=== PATIENT | male | born 1995 | race Caucasian/White ===

== ENCOUNTER 2021-08-17 14:00 | Emergency (ER) | payer OTHER ==
[2021-08-17 14:09] VITALS: BP 185/95; PULSE 70; RESP 20; TEMP 97.6
[2021-08-17] MEDS ORDERED: KETOROLAC 15 MG/ML 1 ML VIAL IVP STA (14:22)
[2021-08-17] MEDS ORDERED: SODIUM CHLORIDE 0.9% 1,000 ML IV STA (14:22)
--- NOTE | 2021-08-17 14:27 | ED ---
General Adult HPI - General Chief complaint: Back Pain/Injury Stated complaint: Abd pain Time Seen by Provider: 08/17/21 14:10 Source: patient, RN notes reviewed, old records reviewed Mode of arrival: wheelchair Limitations: no limitations - History of Present Illness Initial comments: This is a 25-year-old male who presents emergency department stating that back in April he was told he had a 6 mm kidney stone and it is never past according to him. Patient states he has episodes every so often that causes some left- sided flank pain back pain and sometimes radiates into his testicle. Patient states one of those episodes started this morning and it radiated into his testicle and into his CVA region of his back. Patient denies any blood in his urine. Patient denies any nausea vomiting. Patient states he has not taken anything for the pain. Patient denies any fever chills or cough. Patient denies any other symptoms. Patient states the symptoms he's having today's had multiple times since April patient states he had a CAT scan done in April at [facility] - Related Data Previous Rx's Medication Instructions Recorded Ketorolac [Toradol] 10 mg PO Q6HR #15 tab 08/17/21 Tamsulosin [Flomax] 0.4 mg PO DAILY #10 cap 08/17/21 Allergies Allergy/AdvReac Type Severity Reaction Status Date / Time No Known Allergies Allergy Verified 08/17/21 14:09 Review of Systems ROS Statement: Those systems with pertinent positive or pertinent negative responses have been documented in the HPI. ROS Other: All systems not noted in ROS Statement are negative. Past Medical History Past Medical History: No Reported History Past Surgical History: No Surgical Hx Reported Past Psychological History: No Psychological Hx Reported Smoking Status: Vaper Past Alcohol Use History: None Reported Past Drug Use History: Marijuana General Exam - General Exam Comments Initial Comments: GENERAL: Patient is well-developed and well-nourished. Patient is nontoxic and well- hydrated and is in mild distress. ENT: Neck is soft and supple. No significant lymphadenopathy is noted. Oropharynx is clear. Moist mucous membranes. Neck has full range of motion without eliciting any pain. EYES The sclera were anicteric and conjunctiva were pink and moist. Extraocular movements were intact and pupils were equal round and reactive to light. PULMONARY: Unlabored respirations. Good breath sounds bilaterally. No audible rales rhonchi or wheezing was noted. CARDIOVASCULAR: There is a regular rate and rhythm without any murmurs gallops or rubs. ABDOMEN: Soft and nontender with normal bowel sounds. Patient has some mild CVA tenderness GENITALIA: Patient had no redness swelling or tenderness of the scrotum or testicles. SKIN: Skin is clear with no lesions or rashes and otherwise unremarkable. NEUROLOGIC: Patient is alert and oriented x3. Cranial nerves II through XII are grossly intact. Motor and sensory are also intact. Normal speech, volume and content. Symmetrical smile. MUSCULOSKELETAL: Normal extremities with adequate strength and full range of motion. No lower extremity swelling or edema. No calf tenderness. LYMPHATICS: No significant lymphadenopathy is noted PSYCHIATRIC: Normal psychiatric evaluation. Limitations: no limitations Course Vital Signs 08/17/21 14:06 Temperature 97.6 F Pulse Rate 70 Respiratory 20 Rate Blood Pressure 185/95 O2 Sat by Pulse 100 Oximetry Medical Decision Making - Medical Decision Making Patient received Toradol and got moderate relief but still is having some pain so he received another 0.5 of Dilaudid. Patient's CAT scan showed a 7 mm stone at the UVJ junction. Patient will be sent home with Flomax Toradol Tylenol with codeine and will be advised to follow-up with urology - Lab Data Result diagrams: 08/17/21 14:31 08/17/21 14:31 Lab Results 08/17/21 08/17/21 08/17/21 Range/Units 14:31 14:31 14:31 WBC 13.8 H (3.8-10.6) k/uL RBC 4.72 (4.30-5.90) m/uL Hgb 15.1 (13.0-17.5) gm/dL Hct 43.9 (39.0-53.0) % MCV 93.2 (80.0-100.0) fL MCH 32.0 (25.0-35.0) pg MCHC 34.3 (31.0-37.0) g/dL RDW 12.4 (11.5-15.5) % Plt Count 314 (150-450) k/uL MPV 6.7 Neutrophils % 87 % Lymphocytes % 8 % Monocytes % 4 % Eosinophils % 1 % Basophils % 0 % Neutrophils # 12.0 H (1.3-7.7) k/uL Lymphocytes # 1.1 (1.0-4.8) k/uL Monocytes # 0.5 (0-1.0) k/uL Eosinophils # 0.1 (0-0.7) k/uL Basophils # 0.1 (0-0.2) k/uL Sodium 140 (137-145) mmol/L Potassium 4.1 (3.5-5.1) mmol/L Chloride 106 (98-107) mmol/L Carbon Dioxide 26 (22-30) mmol/L Anion Gap 8 mmol/L BUN 10 (9-20) mg/dL Creatinine 0.90 (0.66-1.25) mg/dL Est GFR (CKD-EPI)AfAm >90 (>60 ml/min/1.73 sqM) Est GFR (CKD-EPI)NonAf >90 (>60 ml/min/1.73 sqM) Glucose 111 H (74-99) mg/dL Calcium 9.3 (8.4-10.2) mg/dL Total Bilirubin 0.7 (0.2-1.3) mg/dL AST 27 (17-59) U/L ALT 15 (4-49) U/L Alkaline Phosphatase 64 (38-126) U/L Total Protein 7.4 (6.3-8.2) g/dL Albumin 4.6 (3.5-5.0) g/dL Amylase 59 (30-110) U/L Lipase 45 (23-300) U/L Urine Color Light Red Urine Appearance Cloudy (Clear) Urine pH 6.0 (5.0-8.0) Ur Specific Hamilton 1.028 (1.001-1.035) Urine Protein 1+ H (Negative) Urine Glucose (UA) Negative (Negative) Urine Ketones Trace H (Negative) Urine Blood Large H (Negative) Urine Nitrite Negative (Negative) Urine Bilirubin Negative (Negative) Urine Urobilinogen <2.0 (<2.0) mg/dL Ur Leukocyte Esterase Negative (Negative) Urine RBC >182 H (0-5) /hpf Urine Mucus Rare H (None) /hpf Urine Yeast (Budding) Occasional H (None) /hpf Disposition Clinical Impression: Kidney stone on right side Disposition: HOME SELF-CARE Instructions (If sedation given, give patient instructions): Kidney Stones (ED), How to Strain Your Urine (ED) Prescriptions: Tamsulosin [Flomax] 0.4 mg PO DAILY #10 cap Ketorolac [Toradol] 10 mg PO Q6HR #15 tab Is patient prescribed a controlled substance at d/c from ED?: No Referrals: Flo Carroll MD [STAFF PHYSICIAN] - 1-2 days Time of Disposition: 15:39
[2021-08-17 14:52] LABS: Appearance,Urine Cloudy (Clear); Bilirubin,Urine Negative (Negative); Blood,Urine Large (Negative); Budding Yeast,Urine Occasional /hpf; Color,Urine Light Red; Glucose,Urine (UA) Negative (Negative); Ketones,Urine Trace (Negative); Leukocyte Esterase,Urine Negative (Negative); Mucus,Urine Rare /hpf; Nitrite,Urine Negative (Negative); Protein,Urine 1+ (Negative); RBC,Urine >182 /hpf (0-5); Specific Gravity,Urine 1.028 (1.001-1.035); Urobilinogen,Urine <2.0 mg/dL (<2.0)
[2021-08-17 15:02] LABS: Basophils # (A) 0.1 k/uL (0-0.2); Basophils % (A) 0 %; Eosinophils # (A) 0.1 k/uL (0-0.7); Eosinophils % (A) 1 %; HCT 43.9 % (39.0-53.0); HGB 15.1 gm/dL (13.0-17.5); Lymphocytes # (A) 1.1 k/uL (1.0-4.8); Lymphocytes % (A) 8 %; MCHC 34.3 g/dL (31.0-37.0); MCV 93.2 fL (80.0-100.0); Mean Platelet Volume 6.7; Monocytes # (A) 0.5 k/uL (0-1.0); Monocytes % (A) 4 %; Neutrophils % (A) 87 %; Platelet Count 314 k/uL (150-450); RBC 4.72 m/uL (4.30-5.90); RDW 12.4 % (11.5-15.5); WBC 13.8 k/uL (3.8-10.6)
[2021-08-17 15:03] LABS: ALT 15 U/L (4-49); AST 27 U/L (17-59); African American GFR (CKD) >90 (>60 ml/min/1.73 sqM); Albumin 4.6 g/dL (3.5-5.0); Alkaline Phosphatase 64 U/L (38-126); Amylase 59 U/L (30-110); Anion Gap 8 mmol/L; Blood Urea Nitrogen 10 mg/dL (9-20); Calcium 9.3 mg/dL (8.4-10.2); Carbon Dioxide 26 mmol/L (22-30); Chloride 106 mmol/L (98-107); Glucose 111 mg/dL (74-99); Lipase 45 U/L (23-300); Non-African American GFR(CKD) >90 (>60 ml/min/1.73 sqM); Potassium 4.1 mmol/L (3.5-5.1); Sodium 140 mmol/L (137-145); Total Bilirubin 0.7 mg/dL (0.2-1.3); Total Protein 7.4 g/dL (6.3-8.2)
--- NOTE | 2021-08-17 15:31 | CT ---
EXAMINATION TYPE: CT abdomen pelvis wo con DATE OF EXAM: 08/17/2021 COMPARISON: None HISTORY: Right flank pain and hematuria. CT DLP: 374.6 mGycm Automated exposure control for dose reduction was used. TECHNIQUE: Helical acquisition of images was performed from the lung bases through the pelvis. FINDINGS: Lung bases are clear. There is moderate to marked right hydronephrosis secondary to a 7 mm right UVJ calculus. Left kidney is normal. The stomach is markedly distended with fluid. There is no free intraperitoneal air or fluid. There is no bowel obstruction. There is no organomegaly. The osseous structures are intact. IMPRESSION: Moderate to marked right hydronephrosis secondary to a 7 mm right UVJ calculus.
--- NOTE | 2021-08-17 15:34 | XR ---
KUB. History is right flank pain. COMPARISON: None TECHNIQUE: 2 upright views the abdomen were obtained FINDINGS: The visualized lung bases are clear. There is no free air beneath the diaphragm. The bowel gas pattern is nonspecific. There is a 6 to 7 mm calcification in the right hemipelvis possibly within the distal right ureter. IMPRESSION: 1. Nonspecific bowel gas pattern without evidence of free air or obstruction. 2. 6-7 mm calcification in the right hemipelvis possibly representing a calculus in the distal right ureter.
[2021-08-17] MEDS ORDERED: HYDROmorphone 0.5 MG/0.5 ML SYRINGE IVP STA (15:37)
[2021-08-17] MEDS ORDERED: ACET/COD 300 MG/30 MG STARTER PACK 6 TAB BTL PO STA (15:40)
== END 2021-08-17 16:17 | disposition home or self-care (01) ==
LOC: EC 14:00
DX: N13.2 Hydronephrosis with renal and ureteral calculous obstruction (principal); F17.209 Nicotine dependence, unspecified, with unspecified nicotine-induced disorders
CPT/HCPCS: 36415; 80053; 82150; 83690; 85025; 81001; 74018; 74176; 99284; 96374; 96375; 96361; J1885; J1170

== ENCOUNTER 2021-08-18 10:29 | Emergency (ER) | payer OTHER ==
[2021-08-18 10:39] VITALS: TEMP 97.7
[2021-08-18] MEDS ORDERED: SODIUM CHLORIDE 0.9% 500 ML 500 ML IV STA (10:45)
--- NOTE | 2021-08-18 11:04 | ED ---
General Adult HPI - General Chief complaint: Abdominal Pain Stated complaint: Revisit/vomiting Time Seen by Provider: 08/18/21 10:44 Source: patient, family Mode of arrival: ambulatory Limitations: no limitations - History of Present Illness Initial comments: Dictation was produced using [employer] dictation software. please excuse any grammatical, word or spelling errors. Chief Complaint: 25-year-old male presents emergency department for black diarrhea History of Present Illness: 25-year-old value was seen here in emergency departm ent yesterday. Patient said he was diagnosed with a kidney stone. He was discharged with prescription for Toradol and Flomax. Patient has computed tomography scan yesterday showed 7 mm kidney stone with marked right-sided hydronephrosis. Patient states his kidney symptoms have disappeared. Patient states this morning he woke up and had a episode of black diarrhea. States that it was dark in color and loose. He was not coffee ground. Patient is a history of GI bleed. He has no abdominal pain. The ROS documented in this emergency department record has been reviewed and confirmed by me. Those systems with pertinent positive or negative responses have been documented in the HPI. All other systems are other negative and/or noncontributory. PHYSICAL EXAM: General Impression: Alert and oriented x3, not in acute distress HEENT: Normocephalic atraumatic, extra-ocular movements intact, pupils equal and reactive to light bilaterally, mucous membranes moist. Cardiovascular: Heart regular rate and rhythm Chest: Able to complete full sentences, no retractions, no tachypnea Abdomen: abdomen soft, non-tender, non-distended, no organomegaly Musculoskeletal: Pulses present and equal in all extremities, no peripheral edema Motor: no focal deficits noted Neurological: CN II-XII grossly intact, no focal motor or sensory deficits noted Skin: Intact with no visualized rashes Psych: Normal affect and mood ED course: 25-year-old male presents to the emergency department for black wilder rrhea. Patient is prescribed Toradol yesterday. Patient told to discontinue taking Toradol anymore due to concerns of GI bleed. Vital Signs upon arrival are within acceptable limits. Laboratory evaluation obtained. Hemoglobin stable. Labs are otherwise unremarkable. Patient observed in emergency department for one hour and 40 minutes reevaluated at bedside at 12:15 PM found to be stable medical condition. Patient does not have a primary care doctor is given referral to 1. Return precautions discussed. Patient told to monitor symptoms and return if he has any worsening symptoms especially abdominal pain and further signs of GI bleeding. - Related Data Previous Rx's Medication Instructions Recorded Ketorolac [Toradol] 10 mg PO Q6HR #15 tab 08/17/21 Tamsulosin [Flomax] 0.4 mg PO DAILY #10 cap 08/17/21 Allergies Allergy/AdvReac Type Severity Reaction Status Date / Time No Known Allergies Allergy Verified 08/18/21 11:33 Review of Systems ROS Statement: Those systems with pertinent positive or pertinent negative responses have been documented in the HPI. ROS Other: All systems not noted in ROS Statement are negative. Past Medical History Past Medical History: No Reported History Past Surgical History: No Surgical Hx Reported Past Psychological History: No Psychological Hx Reported Smoking Status: Vaper Past Alcohol Use History: None Reported Past Drug Use History: Marijuana General Exam Limitations: no limitations Course Vital Signs 08/18/21 10:35 Temperature 97.7 F Pulse Rate 95 Respiratory 18 Rate Blood Pressure 126/82 O2 Sat by Pulse 100 Oximetry Medical Decision Making - Lab Data Result diagrams: 08/18/21 10:56 08/18/21 10:56 Lab Results 08/18/21 08/18/21 Range/Units 10:56 10:56 WBC 8.2 (3.8-10.6) k/uL RBC 4.50 (4.30-5.90) m/uL Hgb 14.5 (13.0-17.5) gm/dL Hct 41.7 (39.0-53.0) % MCV 92.6 (80.0-100.0) fL MCH 32.2 (25.0-35.0) pg MCHC 34.8 (31.0-37.0) g/dL RDW 12.4 (11.5-15.5) % Plt Count 330 (150-450) k/uL MPV 6.6 Neutrophils % 75 % Lymphocytes % 19 % Monocytes % 4 % Eosinophils % 1 % Basophils % 1 % Neutrophils # 6.1 (1.3-7.7) k/uL Lymphocytes # 1.5 (1.0-4.8) k/uL Monocytes # 0.4 (0-1.0) k/uL Eosinophils # 0.1 (0-0.7) k/uL Basophils # 0.0 (0-0.2) k/uL Sodium 139 (137-145) mmol/L Potassium 3.9 (3.5-5.1) mmol/L Chloride 104 (98-107) mmol/L Carbon Dioxide 28 (22-30) mmol/L Anion Gap 7 mmol/L BUN 23 H (9-20) mg/dL Creatinine 0.78 (0.66-1.25) mg/dL Est GFR (CKD-EPI)AfAm >90 (>60 ml/min/1.73 sqM) Est GFR (CKD-EPI)NonAf >90 (>60 ml/min/1.73 sqM) Glucose 141 H (74-99) mg/dL Calcium 9.2 (8.4-10.2) mg/dL Total Bilirubin 0.6 (0.2-1.3) mg/dL AST 20 (17-59) U/L ALT 14 (4-49) U/L Alkaline Phosphatase 53 (38-126) U/L Total Protein 6.6 (6.3-8.2) g/dL Albumin 4.1 (3.5-5.0) g/dL Lipase 39 (23-300) U/L Disposition Clinical Impression: GI bleed Disposition: HOME SELF-CARE Condition: Fair Instructions (If sedation given, give patient instructions): Gastrointestinal Bleeding (ED) Is patient prescribed a controlled substance at d/c from ED?: No Referrals: Rosa M Gotti MD [REFERRING] - 1-2 days
[2021-08-18 11:38] LABS: Basophils % (A) 1 %; Eosinophils # (A) 0.1 k/uL (0-0.7); Eosinophils % (A) 1 %; HCT 41.7 % (39.0-53.0); HGB 14.5 gm/dL (13.0-17.5); Lymphocytes # (A) 1.5 k/uL (1.0-4.8); Lymphocytes % (A) 19 %; MCH 32.2 pg (25.0-35.0); MCHC 34.8 g/dL (31.0-37.0); MCV 92.6 fL (80.0-100.0); Mean Platelet Volume 6.6; Monocytes # (A) 0.4 k/uL (0-1.0); Monocytes % (A) 4 %; Neutrophils # (A) 6.1 k/uL (1.3-7.7); Neutrophils % (A) 75 %; Platelet Count 330 k/uL (150-450); RDW 12.4 % (11.5-15.5); WBC 8.2 k/uL (3.8-10.6)
[2021-08-18 11:52] LABS: ALT 14 U/L (4-49); AST 20 U/L (17-59); African American GFR (CKD) >90 (>60 ml/min/1.73 sqM); Albumin 4.1 g/dL (3.5-5.0); Alkaline Phosphatase 53 U/L (38-126); Anion Gap 7 mmol/L; Blood Urea Nitrogen 23 mg/dL (9-20); Calcium 9.2 mg/dL (8.4-10.2); Carbon Dioxide 28 mmol/L (22-30); Chloride 104 mmol/L (98-107); Glucose 141 mg/dL (74-99); Lipase 39 U/L (23-300); Non-African American GFR(CKD) >90 (>60 ml/min/1.73 sqM); Potassium 3.9 mmol/L (3.5-5.1); Sodium 139 mmol/L (137-145); Total Bilirubin 0.6 mg/dL (0.2-1.3); Total Protein 6.6 g/dL (6.3-8.2)
[2021-08-18] MEDS ORDERED: PANTOPRAZOLE 40 MG/10 ML VIAL IVP STA (11:57)
[2021-08-18 12:17] VITALS: BP 110/72; PULSE 62; RESP 16
== END 2021-08-18 12:17 | disposition home or self-care (01) ==
LOC: EC 10:29
DX: K92.2 Gastrointestinal hemorrhage, unspecified (principal); F17.209 Nicotine dependence, unspecified, with unspecified nicotine-induced disorders
CPT/HCPCS: 99284; 36415; 80053; 83690; 85025; 96374; C9113